=== PATIENT | female | born 1965 | race Caucasian/White ===

== ENCOUNTER 2017-03-23 11:46 | Day surgery (SDC) | payer OTHER ==
[~2017-03-23] VITALS: Ht 167.6 cm; Wt 77.3 kg
[2017-03-23 12:47] VITALS: Ht 167.6 cm; Wt 77.3 kg
[2017-03-23 13:10] VITALS: BP 101/51; PULSE 67; RESP 24
[2017-03-23 14:20] VITALS: BP 89/51; PULSE 60; RESP 12
[2017-03-23] MEDS ORDERED: FENTAnyl 50 MCG/ML VIAL ONE (14:30)
[2017-03-23] MEDS ORDERED: MIDAZOLAM 1 MG/ML 2 ML INJ ONE ×2 (14:31)
--- NOTE | 2017-03-31 13:00 | GILP ---
DATE OF PROCEDURE: PROCEDURE PERFORMED: Colonoscopy and biopsy. SURGEON: Dina Calzada MD PREOP DIAGNOSIS: Screening colonoscopy. POSTOPERATIVE DIAGNOSES: 1. Colonoscopy all the way to the cecum. 2. Small rectal polyp was removed using the biopsy forceps. 3. Internal hemorrhoids. IMPRESSION: The patient is a 51-year-old female patient who was scheduled for screening colonoscopy. The procedure and possible complications were well explained to the patient. The patient understood and consented to the procedure. DESCRIPTION OF PROCEDURE: The colonoscope was carefully introduced into the rectum, under direct vision it was advanced all the way to the cecum. Findings revealed a small rectal polyp and it was removed using the biopsy forceps. The patient was noted to have internal hemorrhoids. The patient tolerated the procedure very well and there were no complications from the procedure. At the end of the procedure she was awake with stable vital signs and she was discharged home in the care of her family. IMPRESSION: 1. Colonoscopy all the way to the cecum. 2. Small rectal polyp was removed using the biopsy forceps. 3. Internal hemorrhoids. PLAN: 1. Await histopathology report. 2. Next screening colonoscopy in 10 years. Dictated By: MD MENDOZA Hernández/juno/betty /Document#: [id number]
== END 2017-03-23 16:16 | disposition home or self-care (01) ==
LOC: GIL 11:46
PROVIDERS: ATTEND Internal Medicine Gastroenterology
DX: Z12.11 Encounter for screening for malignant neoplasm of colon (principal); K62.1 Rectal polyp; K64.8 Other hemorrhoids
CPT/HCPCS: 45380; 84702; 88305; J2250; J3010; Z7610

== ENCOUNTER 2019-03-30 05:45 | Day surgery (SDC) | payer OTHER ==
[~2019-03-30] VITALS: Ht 172.7 cm; Wt 82.5 kg
[2019-03-30 06:34] VITALS: Ht 172.7 cm; Wt 82.5 kg
[2019-03-30 07:09] VITALS: BP 107/59; PULSE 58; RESP 24
[2019-03-30] MEDS ORDERED: MIDAZOLAM 1 MG/ML 2 ML INJ ONE (08:29)
[2019-03-30] MEDS ORDERED: FENTAnyl 50 MCG/ML VIAL ONE (08:29)
[2019-03-30 08:42] VITALS: BP 109/59; PULSE 61; RESP 16
--- NOTE | 2019-03-30 11:24 | CONS ---
DATE OF ADMISSION: 03/30/2019 DATE OF CONSULTATION: 03/02/2019 PATIENT NAME: YURI PEREA TYPE OF CONSULTATION: PREOPERATIVE GASTROENTEROLOGY Dear Dr. Puckett, I thank you very much for this kind referral. HISTORY OF PRESENT ILLNESS: Ms. Yuri Perea is a 53-year-old female patient who has been referre d to me for further evaluation of upper abdominal pain associated with nausea. She also complains of heartburn, not responding to therapy. No past history of peptic ulcer disease. Not on nonsteroidal anti-inflammatory agents. No history of gallstones or liver disease. The patient has history of co nstipation. She had a colonoscopy done 2 years ago and she had a small rectal polyp removed. She al so had hemorrhoids. Not a hypertensive or diabetic. No heart disease, lung problem or kidney diseas e. SOCIAL HISTORY: The patient is a smoker. Denies alcohol abuse. FAMILY HISTORY: No family history of gastrointestinal tract neoplasm. ALLERGIES: No drug allergies. MEDICATIONS: None. PHYSICAL EXAMINATION: GENERAL: She is 5 feet 6 inches tall and weighs 178 pounds. HEART: Normal heart sounds. LUNGS: Clear. ABDOMEN: Soft, no masses. Normal bowel sounds. NEUROLOGIC: Normal neurological exam. IMPRESSION: 1. Upper abdominal pain associated with nausea. 2. Chronic heartburn, not responding to therapy. 3. Constipation. 4. The patient had colonoscopy 2 years ago and small colon polyp was removed and she also had hemorr hoids. PLAN: 1. The patient was advised high fiber diet. 2. MiraLax for constipation. 3. The patient was strongly advised to stop smoking. 4. Endoscopic examination for further evaluation of upper abdominal pain and chronic heartburn. The procedure and possible complications are well explained to the patient. She understands and cons ents to the procedure. I thank you once again. With warmest personal regards, Dictated By: JOSE DONALDSON/ANGELIKA Conf#: [id number] DID#: [id number]
== END 2019-03-30 10:22 | disposition home or self-care (01) ==
LOC: GIL 05:45
PROVIDERS: ATTEND Internal Medicine Gastroenterology
DX: K44.9 Diaphragmatic hernia without obstruction or gangrene (principal); K21.9 Gastro-esophageal reflux disease without esophagitis; K29.50 Unspecified chronic gastritis without bleeding
CPT/HCPCS: 43239; 84703; 88305; 88312; J2250; J3010; Z7610